=== PATIENT | female | born 1980 | race Caucasian/White ===

== ENCOUNTER 2016-10-28 00:13 | Emergency (ER) | payer MEDICAID ==
[~2016-10-28] VITALS: Ht 152.4 cm; Wt 149.2 kg
[~2016-10-28 00:13] MED LIST: HYDR-4100 PO; IBUP-1480 PO; METH500T PO; MONT10TA25 PO
[2016-10-28 00:18] VITALS: BP_SYST 124
--- NOTE | 2016-10-28 00:40 | NUR ---
Placed in room 6 . Placed on cardiac sonographer, blood pressure machine and pulse oximeter. To gown for exam. Side rails up.
--- NOTE | 2016-10-28 00:42 | NUR ---
Pt presents to ED with c/o severe headache 05/15 x2 days, taken norco, advil and tylenol without relief. A&Ox4, ambulatory, denies SOB or chestpain, denies N/V/D, skin intact. will continue to monitor
--- NOTE | 2016-10-28 00:45 | NUR ---
at bedside examining pt
[2016-10-28 01:02] LABS: BILIRUBIN,URINE NEGATIVE (NEGATIVE); CLARITY/URINE SL HAZY (CLEAR); COLOR,URINE YELLOW (YELLOW); GLUCOSE,URINE NEGATIVE (NEGATIVE); KETONES,URINE NEGATIVE (NEGATIVE); LEUKOCYTE ESTERASE ,URINE NEGATIVE (NEGATIVE); NITRITE, URINE NEGATIVE (NEGATIVE); PH,URINE 5.5 (5.0-8.0); PROTEIN URINE NEGATIVE (NEGATIVE); UROBILINOGEN,URINE 0.2 (0.2-1.0)
[2016-10-28 01:15] LABS: BLOOD, URINE TRACE (NEGATIVE)
[2016-10-28] MEDS ORDERED: KETOROLAC TROMETHAMINE 30 MG VIAL IVP ONE (01:15)
[2016-10-28 01:18] LABS: BACTERIA,URINE RARE /HPF (None Seen); RBC,URINE 0-3 /HPF (0-3); WBC,URINE NONE SEEN /HPF (0-3)
[2016-10-28] MEDS ORDERED: cefTRIAXone 2 GM VIAL ONE (01:23)
--- NOTE | 2016-10-28 01:40 | NUR ---
Pt stated pain is still unbearable after toradol IV, MD cao notified
[2016-10-28] MEDS ORDERED: ONDANSETRON HCL 4 MG/2 ML VIAL IVP ONE (01:45)
[2016-10-28] MEDS ORDERED: MORPHINE SULFATE 10 MG/ML VIAL IVP ONE (01:45)
--- NOTE | 2016-10-28 02:52 | NUR ---
Pt stated she feels comfortable, pain 0/10. VSS
--- NOTE | 2016-10-28 03:30 | NUR ---
Patient given written and verbal discharge instructions and verbalizes understanding. ER MD Zarco discussed with patient the results and treatment provided. Patient in stable condition. ID arm band removed. IV catheter removed intact and dressing applied, no active bleeding. Rx of Naprosyn, augmentin given. Patient educated on pain management and to follow up with PMD. Pain Scale 0/10 Opportunity for questions provided and answered.
[2016-10-28 03:32] VITALS: BP_SYST 116
== END 2016-10-28 03:30 | disposition home or self-care (01) ==
LOC: SED 00:13
DX: J32.4 Chronic pansinusitis (principal); H66.93 Otitis media, unspecified, bilateral; J45.909 Unspecified asthma, uncomplicated
CPT/HCPCS: 81000; 81025; 96365; 96375; 99284; J0696; J1885; J2270; J2405

== ENCOUNTER 2017-05-28 18:37 | Emergency (ER) | payer MEDICAID ==
[~2017-05-28] VITALS: Ht 152.4 cm; Wt 154.2 kg
[2017-05-28 19:00] VITALS: BP_SYST 130
[2017-05-28] MEDS ORDERED: OXYCODONE/ACETAMINOPHEN *10*mg/325 mg TABLET PO ONE (20:00)
[2017-05-28] MEDS ORDERED: KETOROLAC TROMETHAMINE 60 MG/2 ML VIAL IM ONE (20:00)
[2017-05-28] MEDS ORDERED: SUMAtriptan SUCCINATE 6 MG/0.5 ML VIAL SUBCUT ONE (20:00)
[2017-05-28 20:58] VITALS: BP_SYST 130
== END 2017-05-28 20:58 | disposition home or self-care (01) ==
LOC: SED 18:37
DX: G44.209 Tension-type headache, unspecified, not intractable (principal); J45.909 Unspecified asthma, uncomplicated
CPT/HCPCS: 96372; 99284; J1885; J3030

== ENCOUNTER 2017-10-22 00:07 | Emergency (ER) | payer MEDICAID ==
[~2017-10-22] VITALS: Ht 152.4 cm; Wt 160.6 kg
[2017-10-22 00:12] VITALS: BP_SYST 141
[2017-10-22 01:29] LABS: EOSINOPHILS # (AUTO) 0.5 K/uL (0.0-0.4); MEAN CORPUSCULAR HGB CONC 29 % (32-36); WHITE BLOOD COUNT (AUTO) 11.8 K/uL (4.8-10.8)
[2017-10-22 01:37] LABS: BASOPHILS # (AUTO) 0.1 K/uL (0.0-0.2); BASOPHILS % (AUTO) 0.5 % (0.0-2.0); EOSINOPHILS % (AUTO) 4.2 % (0.0-4.0); HEMATOCRIT 31.5 % (36-48); HEMOGLOBIN 9.2 g/dL (12.0-16.0); LYMPHOCYTES # (AUTO) 2.6 K/uL (1.0-5.5); LYMPHOCYTES % (AUTO) 22.1 % (20.5-51.5); MEAN CORPUSCULAR HEMOGLOBIN 19 pg (27-31); MEAN CORPUSCULAR VOLUME 66 fL (79.0-98.0); MONOCYTES # (AUTO) 0.5 K/uL (0.0-1.0); NEUTROPHILS # (AUTO) 8.1 K/uL (1.8-7.7); NEUTROPHILS % (AUTO) 69.2 % (40.0-70.0); PLATELET COUNT (AUTO) 348 K/uL (130-430); RED BLOOD CELL COUNT(AUTO) 4.76 MIL/uL (4.2-6.2)
[2017-10-22 01:45] LABS: CALCIUM 8.7 mg/dL (8.4-11.0); CREATININE 0.65 mg/dL (0.55-1.30); POTASSIUM 4.3 mmol/L (3.5-5.1)
[2017-10-22 01:50] LABS: TOTAL BILIRUBIN 0.2 mg/dL (0.0-1.0)
[2017-10-22 02:20] VITALS: BP_SYST 141
== END 2017-10-22 02:20 | disposition home or self-care (01) ==
LOC: SED 00:07
DX: R60.9 Edema, unspecified (principal); J45.909 Unspecified asthma, uncomplicated; E66.01 Morbid (severe) obesity due to excess calories; Z68.44 Body mass index [BMI] 60.0-69.9, adult; Z90.89 Acquired absence of other organs; Z90.49 Acquired absence of other specified parts of digestive tract; Z79.899 Other long term (current) drug therapy; Z87.891 Personal history of nicotine dependence
CPT/HCPCS: 36415; 71045; 71046-TC; 80053; 83690-TC; 83880; 84484; 85025; 93005; 99285

== ENCOUNTER 2019-06-05 15:47 | Inpatient (IN) | payer MEDICAID ==
[~2019-06-05] VITALS: Ht 152.4 cm; Wt 170.6 kg
[~2019-06-05 15:47] MED LIST changes: -IBUP-1480 PO; +IBUP-1970 PO
[2019-06-05 15:50] VITALS: BP_SYST 150
[2019-06-05] MEDS ORDERED: NITROGLYCERIN 1 INCH (GM) OINT. TP ONE (16:00)
[2019-06-05] MEDS ORDERED: FUROSEMIDE 100 MG/10 ML VIAL IVP ONE (16:00)
[2019-06-05] MEDS ORDERED: KETOROLAC TROMETHAMINE 30 MG VIAL IVP ONE (16:00)
[2019-06-05] MEDS ORDERED: IPRATROPIUM/ALBUTEROL SULFATE 3 ML AMPUL.NEB (DUONEB) INH ONE (16:00)
[2019-06-05 17:03] LABS: BASOPHILS # (AUTO) 0.1 K/uL (0.0-0.2); BASOPHILS % (AUTO) 0.7 % (0.0-2.0); EOSINOPHILS # (AUTO) 0.2 K/uL (0.0-0.4); EOSINOPHILS % (AUTO) 1.9 % (0.0-4.0); HEMATOCRIT 35.3 % (36-48); HEMOGLOBIN 10.4 g/dL (12.0-16.0); LYMPHOCYTES % (AUTO) 18.1 % (20.5-51.5); MEAN CORPUSCULAR HEMOGLOBIN 21 pg (27-31); MEAN CORPUSCULAR HGB CONC 30 % (32-36); MEAN CORPUSCULAR VOLUME 72 fL (79.0-98.0); MONOCYTES # (AUTO) 0.5 K/uL (0.0-1.0); MONOCYTES % (AUTO) 4.7 % (1.7-9.3); NEUTROPHILS # (AUTO) 8.4 K/uL (1.8-7.7); NEUTROPHILS % (AUTO) 74.6 % (40.0-70.0); PLATELET COUNT (AUTO) 268 K/uL (130-430); RED BLOOD CELL COUNT(AUTO) 4.92 MIL/uL (4.2-6.2); RED CELL DISTRIBUTION WIDTH 22.4 % (9.0-15.0); WHITE BLOOD COUNT (AUTO) 11.3 K/uL (4.8-10.8)
[2019-06-05 17:15] LABS: CALCIUM 8.3 mg/dL (8.4-11.0); CREATININE 0.78 mg/dL (0.55-1.30); POTASSIUM 4.2 mmol/L (3.5-5.1)
[2019-06-05 17:22] LABS: TOTAL BILIRUBIN 0.3 mg/dL (0.0-1.0)
[2019-06-05 17:33] LABS: PROTHROMBIN TIME 10.4 SECS (9.5-12.5)
[2019-06-05] MEDS ORDERED: LEVO100T9 PO (18:26)
[2019-06-05] MEDS ORDERED: GABA800T PO (18:26)
[2019-06-05] MEDS ORDERED: ALPR1TAB2 PO (18:26)
[2019-06-05] MEDS ORDERED: FURO-150 PO (18:26)
[2019-06-05] MEDS ORDERED: HYDR-3925 PO (18:26)
[2019-06-05] MEDS ORDERED: TRAZ-250 PO (18:26)
[2019-06-05] MEDS ORDERED: methylPREDNISolone SOD SUCC/PF 62.5 MG/ML VIAL IVP ONE (18:30)
[2019-06-05 19:27] LABS: BILIRUBIN,URINE NEGATIVE (NEGATIVE); BLOOD, URINE 3+ (NEGATIVE); CLARITY/URINE SL CLOUDY (CLEAR); COLOR,URINE YELLOW (YELLOW); GLUCOSE,URINE NEGATIVE (NEGATIVE); KETONES,URINE NEGATIVE (NEGATIVE); LEUKOCYTE ESTERASE ,URINE NEGATIVE (NEGATIVE); NITRITE, URINE NEGATIVE (NEGATIVE); PH,URINE 5.5 (5.0-8.0); PROTEIN URINE 2+ (NEGATIVE); UROBILINOGEN,URINE 0.2 (0.2-1.0)
[2019-06-05] MEDS ORDERED: MAGNESIUM SULFATE 50 ML IV ONE (19:30)
[2019-06-05 19:31] LABS: BACTERIA,URINE FEW /HPF (None Seen); RBC,URINE >100 /HPF (0-3)
[2019-06-05 19:32] LABS: MUCUS,URINE None Seen /LPF (None Seen)
[2019-06-05] MEDS ORDERED: HYDROcodone/ACETAMIN 5-325 MG TAB (NORCO/ VICODIN) PO ONE (20:30)
[2019-06-05] MEDS ORDERED: IPRATROPIUM/ALBUTEROL SULFATE 3 ML AMPUL.NEB (DUONEB) INH PRN (22:30)
[2019-06-05 23:00] VITALS: BP_SYST 130
[2019-06-05 23:25] VITALS: BP_SYST 150
[2019-06-05] MEDS ORDERED: ZOLPIDEM TARTRATE 5 MG TABLET PO PRN (23:30)
[2019-06-06] MEDS: methylPREDNISolone SOD SUCC/PF 62.5 MG/ML VIAL IVP SCH ×2 (00:18→09:13)
[2019-06-06] MEDS: cefTRIAXone 1 GM in D5W 50 ML IV SCH ×2 (00:21→22:42)
[2019-06-06] MEDS: AZITHROMYCIN 500 MG in NS 250 ML IV SCH ×2 (00:22→22:42)
[2019-06-06] MEDS ORDERED: AZITHROMYCIN 500 MG/VIAL (ZITHROMAX) IV ONE (00:23)
[2019-06-06] MEDS ORDERED: cefTRIAXone 1 GM IVPB PREMIX 50 ML IV ONE (00:23)
[2019-06-06] MEDS: HEPARIN SODIUM,PORCINE 5000 UNITS/ML VIAL SUBCUT SCH ×3 (00:24→21:29)
[2019-06-06] MEDS: IPRATROPIUM/ALBUTEROL SULFATE 3 ML AMPUL.NEB (DUONEB) INH SCH ×5 (00:27→23:51)
[2019-06-06 00:52] VITALS: BP_SYST 130
[2019-06-06] MEDS: LEVOTHYROXINE SODIUM 0.1 MG TABLET PO SCH (06:18)
[2019-06-06 07:28] LABS: BASOPHILS % (AUTO) 0.1 % (0.0-2.0); HEMATOCRIT 35.9 % (36-48); HEMOGLOBIN 10.6 g/dL (12.0-16.0); LYMPHOCYTES # (AUTO) 0.8 K/uL (1.0-5.5); LYMPHOCYTES % (AUTO) 7.7 % (20.5-51.5); MEAN CORPUSCULAR HEMOGLOBIN 22 pg (27-31); MEAN CORPUSCULAR HGB CONC 30 % (32-36); MEAN CORPUSCULAR VOLUME 73 fL (79.0-98.0); MONOCYTES # (AUTO) 0.1 K/uL (0.0-1.0); MONOCYTES % (AUTO) 0.7 % (1.7-9.3); NEUTROPHILS % (AUTO) 91.5 % (40.0-70.0); PLATELET COUNT (AUTO) 257 K/uL (130-430); RED BLOOD CELL COUNT(AUTO) 4.92 MIL/uL (4.2-6.2); RED CELL DISTRIBUTION WIDTH 22.3 % (9.0-15.0); WHITE BLOOD COUNT (AUTO) 10.9 K/uL (4.8-10.8)
[2019-06-06 07:50] LABS: ALANINE AMINOTRANSFERASE 39 U/L (12-78); ALBUMIN 2.9 g/dL (3.4-4.8); ASPARTATE AMINOTRANSFERASE 22 U/L (10-37); CALCIUM 8.4 mg/dL (8.4-11.0); CHLORIDE 100 mmol/L (98-107); CREATININE 0.77 mg/dL (0.55-1.30); FREE T4 (FREE THYROXINE) 1.2 ng/dl (0.8-1.5); GLUCOSE 199 mg/dL (70-99); POTASSIUM 4.6 mmol/L (3.5-5.1); SODIUM SERUM 137 mmol/L (136-145); TOTAL BILIRUBIN 0.3 mg/dL (0.0-1.0); UREA NITROGEN, BLOOD 13 mg/dL (8-21)
[2019-06-06 07:53] LABS: ANION GAP < 3 (5-15); GFR AFRICAN AMERICAN 106 mL/min (>90)
[2019-06-06 08:00] VITALS: BP_SYST 124
[2019-06-06] MEDS ORDERED: FLU VACC QS2019-20 36MOS UP/PF 60 MCG/0.5 ML SYRINGE I.M. PRN (09:00)
[2019-06-06] MEDS: FUROSEMIDE 20 MG TABLET PO SCH (09:13)
[2019-06-06] MEDS ORDERED: HYDROcodone/ACETAMIN 10-325 MG TAB PO PRN (09:45)
[2019-06-06] MEDS ORDERED: ALPRAZolam 0.25 MG TABLET PO ONE (10:15)
[2019-06-06] MEDS: KETOROLAC TROMETHAMINE 15 MG VIAL IVP PRN (10:33)
[2019-06-06 12:22] VITALS: BP_SYST 119
[2019-06-06] MEDS ORDERED: FUROSEMIDE 20 MG/2 ML VIAL IVP ONE (15:00)
[2019-06-06 16:16] VITALS: BP_SYST 126
[2019-06-06] MEDS ORDERED: ALPRAZolam 0.25 MG TABLET PO SCH (21:00)
[2019-06-06 21:21] VITALS: BP_SYST 113
[2019-06-06] MEDS: ALPRAZolam 0.25 MG TABLET PO SCH (21:24)
[2019-06-06] MEDS: GABAPENTIN 300 MG CAPSULE PO SCH (21:24)
[2019-06-06] MEDS: traZODone HCL 50 MG TABLET (DESYREL) PO SCH (21:24)
[2019-06-06] MEDS: methylPREDNISolone SOD SUCC 40 MG/ML VIAL IVP SCH (21:25)
[2019-06-07 01:00] VITALS: BP_SYST 124
[2019-06-07] MEDS: IPRATROPIUM/ALBUTEROL SULFATE 3 ML AMPUL.NEB (DUONEB) INH SCH ×6 (03:00→23:28)
[2019-06-07] MEDS: LEVOTHYROXINE SODIUM 0.1 MG TABLET PO SCH (06:00)
[2019-06-07 08:00] VITALS: BP_SYST 128
[2019-06-07] MEDS: HEPARIN SODIUM,PORCINE 5000 UNITS/ML VIAL SUBCUT SCH ×2 (08:59→20:19)
[2019-06-07] MEDS: methylPREDNISolone SOD SUCC 40 MG/ML VIAL IVP SCH ×2 (09:00→20:17)
[2019-06-07] MEDS: ALPRAZolam 0.25 MG TABLET PO SCH ×2 (09:01→20:15)
[2019-06-07] MEDS: FUROSEMIDE 20 MG TABLET PO SCH (09:02)
[2019-06-07] MEDS ORDERED: MAGNESIUM SULFATE 50 ML IV ONE (10:45)
[2019-06-07 12:00] VITALS: BP_SYST 131
[2019-06-07] MEDS: KETOROLAC TROMETHAMINE 15 MG VIAL IVP PRN (12:39)
[2019-06-07] MEDS: MORPHINE 4 MG/ML INJ. SYRINGE IVP PRN ×2 (13:04→20:29)
[2019-06-07 16:48] VITALS: BP_SYST 141
[2019-06-07 19:40] VITALS: BP_SYST 154
[2019-06-07] MEDS: GABAPENTIN 300 MG CAPSULE PO SCH (20:14)
[2019-06-07] MEDS: traZODone HCL 50 MG TABLET (DESYREL) PO SCH (20:14)
[2019-06-07] MEDS: POTASSIUM CHLORIDE 20 MEQ/PKT PACKET PO SCH (20:17)
[2019-06-07] MEDS: FUROSEMIDE 20 MG/2 ML VIAL IVP SCH (21:41)
[2019-06-07] MEDS: cefTRIAXone 1 GM in D5W 50 ML IV SCH (23:51)
[2019-06-08 00:11] VITALS: BP_SYST 135
[2019-06-08] MEDS: IPRATROPIUM/ALBUTEROL SULFATE 3 ML AMPUL.NEB (DUONEB) INH SCH ×6 (03:48→23:00)
[2019-06-08] MEDS: LEVOTHYROXINE SODIUM 0.1 MG TABLET PO SCH (06:33)
[2019-06-08 06:50] LABS: CALCIUM 8.3 mg/dL (8.4-11.0); CREATININE 0.77 mg/dL (0.55-1.30); POTASSIUM 4.7 mmol/L (3.5-5.1)
[2019-06-08] MEDS: POTASSIUM CHLORIDE 20 MEQ/PKT PACKET PO SCH ×2 (07:59→20:26)
[2019-06-08] MEDS: MORPHINE 4 MG/ML INJ. SYRINGE IVP PRN ×3 (07:59→20:25)
[2019-06-08] MEDS: methylPREDNISolone SOD SUCC 40 MG/ML VIAL IVP SCH ×2 (07:59→20:15)
[2019-06-08] MEDS: ALPRAZolam 0.25 MG TABLET PO SCH ×2 (08:00→20:13)
[2019-06-08] MEDS: FUROSEMIDE 20 MG/2 ML VIAL IVP SCH ×2 (08:00→20:16)
[2019-06-08] MEDS: HEPARIN SODIUM,PORCINE 5000 UNITS/ML VIAL SUBCUT SCH ×2 (08:01→20:18)
[2019-06-08 08:08] VITALS: BP_SYST 134
[2019-06-08 10:23] VITALS: BP_SYST 134
[2019-06-08 12:32] VITALS: BP_SYST 139
[2019-06-08 16:21] VITALS: BP_SYST 140
[2019-06-08] MEDS: MONTELUKAST 10 MG TABLET PO SCH (17:31)
[2019-06-08 19:30] VITALS: BP_SYST 133
[2019-06-08] MEDS: GABAPENTIN 300 MG CAPSULE PO SCH (20:12)
[2019-06-08] MEDS: traZODone HCL 50 MG TABLET (DESYREL) PO SCH (20:13)
[2019-06-08] MEDS: cefTRIAXone 1 GM in D5W 50 ML IV SCH (23:37)
[2019-06-09] VITALS: BP_SYST 128
[2019-06-09] MEDS: LEVOTHYROXINE SODIUM 0.1 MG TABLET PO SCH (06:00)
[2019-06-09 06:59] LABS: CALCIUM 8.7 mg/dL (8.4-11.0); CREATININE 0.75 mg/dL (0.55-1.30); POTASSIUM 4.9 mmol/L (3.5-5.1)
[2019-06-09 08:10] VITALS: BP_SYST 132
[2019-06-09] MEDS: POTASSIUM CHLORIDE 20 MEQ/PKT PACKET PO SCH ×2 (08:28→20:42)
[2019-06-09] MEDS: ALPRAZolam 0.25 MG TABLET PO SCH ×2 (08:28→20:41)
[2019-06-09] MEDS: FUROSEMIDE 20 MG/2 ML VIAL IVP SCH (08:29)
[2019-06-09] MEDS: methylPREDNISolone SOD SUCC 40 MG/ML VIAL IVP SCH (08:29)
[2019-06-09] MEDS: HEPARIN SODIUM,PORCINE 5000 UNITS/ML VIAL SUBCUT SCH ×2 (08:32→20:50)
[2019-06-09] MEDS: MORPHINE 4 MG/ML INJ. SYRINGE IVP PRN ×3 (08:39→21:08)
[2019-06-09 11:20] VITALS: BP_SYST 141
[2019-06-09] MEDS ORDERED: MONT10TA25 PO (13:33)
[2019-06-09] MEDS ORDERED: PRED20TA PO (13:33)
[2019-06-09 15:22] VITALS: BP_SYST 137
[2019-06-09] MEDS: IPRATROPIUM/ALBUTEROL SULFATE 3 ML AMPUL.NEB (DUONEB) INH SCH ×4 (15:53→23:46)
[2019-06-09] MEDS ORDERED: IPRA3AMP9 INH (16:42)
[2019-06-09] MEDS ORDERED: CEPH-568 PO (16:45)
[2019-06-09] MEDS: MONTELUKAST 10 MG TABLET PO SCH (17:46)
[2019-06-09 20:00] VITALS: BP_SYST 133
[2019-06-09] MEDS: GABAPENTIN 300 MG CAPSULE PO SCH (20:42)
[2019-06-09] MEDS: PREDNISONE 20 MG TABLET PO SCH (20:42)
[2019-06-09] MEDS: traZODone HCL 50 MG TABLET (DESYREL) PO SCH (20:42)
[2019-06-09] MEDS: cefTRIAXone 1 GM in D5W 50 ML IV SCH (23:52)
[2019-06-10] MEDS: IPRATROPIUM/ALBUTEROL SULFATE 3 ML AMPUL.NEB (DUONEB) INH SCH ×6 (03:06→23:00)
[2019-06-10 05:00] VITALS: BP_SYST 140
[2019-06-10] MEDS: LEVOTHYROXINE SODIUM 0.1 MG TABLET PO SCH (07:14)
[2019-06-10 07:52] VITALS: BP_SYST 136
[2019-06-10] MEDS: PREDNISONE 20 MG TABLET PO SCH ×2 (08:24→20:32)
[2019-06-10] MEDS: ALPRAZolam 0.25 MG TABLET PO SCH ×2 (08:25→20:30)
[2019-06-10] MEDS: FUROSEMIDE 40 MG TABLET PO SCH (08:25)
[2019-06-10] MEDS: POTASSIUM CHLORIDE 20 MEQ/PKT PACKET PO SCH ×2 (08:25→20:29)
[2019-06-10] MEDS: HEPARIN SODIUM,PORCINE 5000 UNITS/ML VIAL SUBCUT SCH ×2 (08:27→20:31)
[2019-06-10] MEDS: MORPHINE 4 MG/ML INJ. SYRINGE IVP PRN (08:32)
[2019-06-10 11:04] VITALS: BP_SYST 108
[2019-06-10] MEDS: KETOROLAC TROMETHAMINE 15 MG VIAL IVP PRN ×2 (13:04→20:40)
[2019-06-10 15:04] VITALS: BP_SYST 125
[2019-06-10] MEDS: MONTELUKAST 10 MG TABLET PO SCH (17:41)
[2019-06-10 20:00] VITALS: BP_SYST 124
[2019-06-10] MEDS: traZODone HCL 50 MG TABLET (DESYREL) PO SCH (20:29)
[2019-06-10] MEDS: GABAPENTIN 300 MG CAPSULE PO SCH (20:29)
[2019-06-10] MEDS: cefTRIAXone 1 GM in D5W 50 ML IV SCH (23:24)
[2019-06-11 00:11] VITALS: BP_SYST 129
[2019-06-11] MEDS: KETOROLAC TROMETHAMINE 15 MG VIAL IVP PRN ×2 (02:56→09:25)
[2019-06-11] MEDS: IPRATROPIUM/ALBUTEROL SULFATE 3 ML AMPUL.NEB (DUONEB) INH SCH ×3 (03:00→11:00)
[2019-06-11] MEDS: LEVOTHYROXINE SODIUM 0.1 MG TABLET PO SCH (06:06)
[2019-06-11 08:11] VITALS: BP_SYST 130
[2019-06-11] MEDS: POTASSIUM CHLORIDE 20 MEQ/PKT PACKET PO SCH (09:13)
[2019-06-11] MEDS: PREDNISONE 20 MG TABLET PO SCH (09:13)
[2019-06-11] MEDS: FUROSEMIDE 40 MG TABLET PO SCH (09:14)
[2019-06-11] MEDS: ALPRAZolam 0.25 MG TABLET PO SCH (09:14)
[2019-06-11] MEDS: HEPARIN SODIUM,PORCINE 5000 UNITS/ML VIAL SUBCUT SCH (09:16)
[2019-06-11 10:31] VITALS: BP_SYST 133
== END 2019-06-11 12:50 | disposition home health service (06) | DRG 140 ==
LOC: SED 15:47 → STU 22:01
PROVIDERS: ADMIT Internal Medicine; ATTEND Internal Medicine
DX: J44.1 Chronic obstructive pulmonary disease with (acute) exacerbation (principal); R65.11 Systemic inflammatory response syndrome (SIRS) of non-infectious origin with acute organ dysfunction; I27.81 Cor pulmonale (chronic); J96.02 Acute respiratory failure with hypercapnia; J96.01 Acute respiratory failure with hypoxia; E87.2 Acidosis; E66.2 Morbid (severe) obesity with alveolar hypoventilation; E44.1 Mild protein-calorie malnutrition; J45.901 Unspecified asthma with (acute) exacerbation; E03.9 Hypothyroidism, unspecified; F32.9 Major depressive disorder, single episode, unspecified; F41.9 Anxiety disorder, unspecified; I10 Essential (primary) hypertension; Z87.891 Personal history of nicotine dependence; Z71.3 Dietary counseling and surveillance; Z68.45 Body mass index [BMI] 70 or greater, adult; Z79.899 Other long term (current) drug therapy; Z90.49 Acquired absence of other specified parts of digestive tract; Z86.32 Personal history of gestational diabetes
CPT/HCPCS: 36415; 36600; 70450-TC; 70486-TC; 71045; 80048; 80053; 81000-TC; 82803-TC; 83605; 83880; 84439; 84484; 84703; 85025; 85379; 85610-TC; 85730-TC; 87040-TC; 87086; 93005; 93306; 94640; 94760; 96365; 96375; 97116-GP; 97530-GP; 99285; G0378; J0456; J0696; J1030; J1644; J1885; J1940; J2270; J2930; J3475; J7050; J7060; J7512; J7620

== ENCOUNTER 2019-07-02 11:06 | Inpatient (IN) | payer MEDICAID ==
[~2019-07-02] VITALS: Ht 152.4 cm; Wt 158.8 kg
[2019-07-02 11:06] VITALS: BP_SYST 148
[~2019-07-02 11:06] MED LIST changes: +ALPR1TAB2 PO; +CEPH-568 PO; +FURO-150 PO; +GABA800T PO; +HYDR-3925 PO; -HYDR-4100 PO; -IBUP-1970 PO; +IPRA3AMP9 INH; +LEVO100T9 PO; -METH500T PO; +PRED20TA PO; +TRAZ-250 PO
[2019-07-02] MEDS ORDERED: LOPERAMIDE HCL 2 MG CAPSULE PO ONE (11:30)
[2019-07-02] MEDS ORDERED: NACL 0.9% 1,000 ML IV ONE (11:30)
[2019-07-02] MEDS ORDERED: IPRATROPIUM/ALBUTEROL SULFATE 3 ML AMPUL.NEB (DUONEB) INH ONE (11:30)
[2019-07-02] MEDS ORDERED: KETOROLAC TROMETHAMINE 30 MG VIAL IVP ONE (11:30)
[2019-07-02] MEDS ORDERED: ONDANSETRON HCL 4 MG/2 ML VIAL IVP ONE (11:30)
[2019-07-02 12:02] LABS: BASOPHILS # (AUTO) 0.1 K/uL (0.0-0.2); BASOPHILS % (AUTO) 0.4 % (0.0-2.0); EOSINOPHILS % (AUTO) 0.1 % (0.0-4.0); HEMATOCRIT 35.9 % (36-48); HEMOGLOBIN 10.6 g/dL (12.0-16.0); LYMPHOCYTES # (AUTO) 2.2 K/uL (1.0-5.5); LYMPHOCYTES % (AUTO) 13.1 % (20.5-51.5); MEAN CORPUSCULAR HEMOGLOBIN 21 pg (27-31); MEAN CORPUSCULAR HGB CONC 30 % (32-36); MEAN CORPUSCULAR VOLUME 73 fL (79.0-98.0); MONOCYTES # (AUTO) 1.2 K/uL (0.0-1.0); MONOCYTES % (AUTO) 7.2 % (1.7-9.3); NEUTROPHILS # (AUTO) 13.1 K/uL (1.8-7.7); NEUTROPHILS % (AUTO) 79.2 % (40.0-70.0); PLATELET COUNT (AUTO) 292 K/uL (130-430); RED BLOOD CELL COUNT(AUTO) 4.95 MIL/uL (4.2-6.2); RED CELL DISTRIBUTION WIDTH 21.3 % (9.0-15.0); WHITE BLOOD COUNT (AUTO) 16.5 K/uL (4.8-10.8)
[2019-07-02 12:18] LABS: CALCIUM 8.6 mg/dL (8.4-11.0); CREATININE 1.5 mg/dL (0.55-1.30); POTASSIUM 4.8 mmol/L (3.5-5.1)
[2019-07-02 12:30] LABS: ALBUMIN 3.4 g/dL (3.4-4.8)
[2019-07-02] MEDS ORDERED: MORPHINE 4 MG/ML INJ. SYRINGE IVP ONE ×2 (14:15→15:00)
[2019-07-02] MEDS ORDERED: PIPERACILLIN/TAZO 3.375 GM in NS 50 ML IV ONE (14:15)
[2019-07-02] MEDS ORDERED: NACL 0.9% 3,000 ML IV ONE (14:45)
[2019-07-02] MEDS ORDERED: VANCOMYCIN HCL 1,000 MG in NS 250 ML IV ONE (15:00)
[2019-07-02] MEDS ORDERED: PIPERACILLIN/TAZOBACTAM 3.375 GM/VIAL (ZOSYN) IV ONE (15:03)
[2019-07-02 15:07] LABS: BILIRUBIN,URINE NEGATIVE (NEGATIVE); BLOOD, URINE 2+ (NEGATIVE); CLARITY/URINE CLEAR (CLEAR); COLOR,URINE YELLOW (YELLOW); GLUCOSE,URINE NEGATIVE (NEGATIVE); KETONES,URINE NEGATIVE (NEGATIVE); LEUKOCYTE ESTERASE ,URINE NEGATIVE (NEGATIVE); NITRITE, URINE NEGATIVE (NEGATIVE); PROTEIN URINE 2+ (NEGATIVE)
[2019-07-02] MEDS ORDERED: VANCOMYCIN HCL 1000 MG/VIAL IV ONE (15:07)
[2019-07-02 15:30] VITALS: BP_SYST 154
[2019-07-02 15:42] LABS: BACTERIA,URINE FEW /HPF (None Seen); FINE GRANULAR CASTS,URINE 0-10 /LPF (None Seen); HYALINE CASTS, URINE 0-10 /LPF (None Seen); WBC,URINE 0-3 /HPF (0-3)
[2019-07-02] MEDS ORDERED: D5NS 1,000 ML IV ONE (16:00)
[2019-07-02] MEDS ORDERED: POTASSIUM CHLORIDE 20 MEQ TAB.PRT.SR PO PRN (16:00)
[2019-07-02] MEDS ORDERED: MAGNESIUM SULFATE 50 ML IV PRN (16:00)
[2019-07-02] MEDS ORDERED: MUPIROCIN 2% TOPICAL OINTMENT 22 GM NS PRN (16:00)
[2019-07-02] MEDS ORDERED: ZOLPIDEM TARTRATE 5 MG TABLET PO PRN (16:00)
[2019-07-02] MEDS ORDERED: DOCUSATE SODIUM 100 MG CAPSULE PO PRN (16:00)
[2019-07-02] MEDS ORDERED: ACETAMINOPHEN 325 MG TABLET PO PRN (16:00)
[2019-07-02] MEDS ORDERED: IPRATROPIUM/ALBUTEROL SULFATE 3 ML AMPUL.NEB (DUONEB) INH PRN (16:00)
[2019-07-02 16:52] VITALS: BP_SYST 131
[2019-07-02] MEDS: MONTELUKAST 10 MG TABLET PO SCH ×2 (18:00→21:00)
[2019-07-02 19:00] VITALS: BP_SYST 148
[2019-07-02] MEDS: MORPHINE 2 MG/ML INJ. SYRINGE IVP PRN (19:35)
[2019-07-02] MEDS: LORazepam 2 MG/ML VIAL IVP PRN (19:39)
[2019-07-02] MEDS: ONDANSETRON HCL 4 MG/2 ML VIAL IVP PRN (19:39)
[2019-07-02] MEDS: HEPARIN SODIUM,PORCINE 5000 UNITS/ML VIAL SUBCUT SCH (21:00)
[2019-07-03 01:07] VITALS: BP_SYST 155
[2019-07-03 08:00] VITALS: BP_SYST 154
[2019-07-03 08:06] LABS: HEPATITIS A AB, IgM Negative (Negative); HEPATITIS B CORE AB, IgM Negative (Negative); HEPATITIS B SURFACE AG Negative (Negative)
[2019-07-03] MEDS: LEVOTHYROXINE SODIUM 0.1 MG TABLET PO SCH (08:45)
[2019-07-03 09:24] LABS: BASOPHILS % (AUTO) 0.3 % (0.0-2.0); EOSINOPHILS # (AUTO) 0.1 K/uL (0.0-0.4); EOSINOPHILS % (AUTO) 0.7 % (0.0-4.0); HEMATOCRIT 32.8 % (36-48); LYMPHOCYTES % (AUTO) 15.1 % (20.5-51.5); MEAN CORPUSCULAR HEMOGLOBIN 22 pg (27-31); MEAN CORPUSCULAR HGB CONC 30 % (32-36); MEAN CORPUSCULAR VOLUME 72 fL (79.0-98.0); MONOCYTES % (AUTO) 7.6 % (1.7-9.3); NEUTROPHILS # (AUTO) 10.3 K/uL (1.8-7.7); NEUTROPHILS % (AUTO) 76.3 % (40.0-70.0); PLATELET COUNT (AUTO) 266 K/uL (130-430); RED BLOOD CELL COUNT(AUTO) 4.57 MIL/uL (4.2-6.2); RED CELL DISTRIBUTION WIDTH 21.4 % (9.0-15.0); WHITE BLOOD COUNT (AUTO) 13.6 K/uL (4.8-10.8)
[2019-07-03 09:53] LABS: ALANINE AMINOTRANSFERASE 1081 U/L (12-78); ANION GAP 2 (5-15); ASPARTATE AMINOTRANSFERASE 614 U/L (10-37); CALCIUM 8.1 mg/dL (8.4-11.0); CHLORIDE 98 mmol/L (98-107); GLUCOSE 172 mg/dL (70-99); LACTATE DEHYDROGENASE 486 U/L (81-234); POTASSIUM 5.2 mmol/L (3.5-5.1); SODIUM SERUM 135 mmol/L (136-145); TOTAL BILIRUBIN 0.9 mg/dL (0.0-1.0); UREA NITROGEN, BLOOD 28 mg/dL (8-21)
[2019-07-03] MEDS: MORPHINE 2 MG/ML INJ. SYRINGE IVP PRN ×3 (10:01→21:22)
[2019-07-03 10:05] LABS: ACETAMINOPHEN < 1 ug/mL (1-30); GFR AFRICAN AMERICAN 70 mL/min (>90)
[2019-07-03] MEDS: HEPARIN SODIUM,PORCINE 5000 UNITS/ML VIAL SUBCUT SCH ×2 (10:05→21:13)
[2019-07-03] MEDS: ONDANSETRON HCL 4 MG/2 ML VIAL IVP PRN ×2 (10:15→17:30)
[2019-07-03 12:00] VITALS: BP_SYST 140
[2019-07-03 17:14] VITALS: BP_SYST 133
[2019-07-03] MEDS: MONTELUKAST 10 MG TABLET PO SCH (17:30)
[2019-07-03 19:00] VITALS: BP_SYST 130
[2019-07-03 20:00] VITALS: BP_SYST 155
[2019-07-03] MEDS: LORazepam 2 MG/ML VIAL IVP PRN (21:24)
[2019-07-04] VITALS: BP_SYST 162
[2019-07-04] MEDS: LEVOTHYROXINE SODIUM 0.1 MG TABLET PO SCH (05:57)
[2019-07-04 07:41] LABS: HEMATOCRIT 32.6 % (36-48); HEMOGLOBIN 9.7 g/dL (12.0-16.0); MEAN CORPUSCULAR HEMOGLOBIN 22 pg (27-31); MEAN CORPUSCULAR HGB CONC 30 % (32-36); MEAN CORPUSCULAR VOLUME 73 fL (79.0-98.0); PLATELET COUNT (AUTO) 266 K/uL (130-430); RED BLOOD CELL COUNT(AUTO) 4.49 MIL/uL (4.2-6.2); RED CELL DISTRIBUTION WIDTH 21.6 % (9.0-15.0); WHITE BLOOD COUNT (AUTO) 11.6 K/uL (4.8-10.8)
[2019-07-04 08:03] LABS: CALCIUM 7.8 mg/dL (8.4-11.0); CREATININE 0.91 mg/dL (0.55-1.30); POTASSIUM 4.3 mmol/L (3.5-5.1)
[2019-07-04 08:40] VITALS: BP_SYST 119
[2019-07-04] MEDS: HEPARIN SODIUM,PORCINE 5000 UNITS/ML VIAL SUBCUT SCH ×2 (09:07→22:46)
[2019-07-04 11:35] LABS: ATYPICAL LYMPHOCYTES % 2 % (0-0); BASOPHILS % (MANUAL) 0 % (0-2); EOSINOPHILS % (MANUAL) 3 % (0-7); LYMPHOCYTES % (MANUAL) 17 % (20-46); METAMYELOCYTES % 1 % (0-0); MONOCYTES % (MANUAL) 6 % (0-11)
[2019-07-04 11:36] LABS: BAND % (MANUAL) 6 % (0-6)
[2019-07-04 11:37] LABS: TOTAL IRON BIND. CAPACITY 495 ug/dL (250-450)
[2019-07-04 12:06] LABS: ANTI NUCLEAR AB WITH REFLEX Positive (Negative)
[2019-07-04 12:34] VITALS: BP_SYST 106
[2019-07-04] MEDS: SOD FERRIC GLUC COMPLEX/SUC 125 MG in NS 100 ML IV SCH (13:08)
[2019-07-04] MEDS: MORPHINE 2 MG/ML INJ. SYRINGE IVP PRN (16:03)
[2019-07-04 17:13] VITALS: BP_SYST 98
[2019-07-04] MEDS: metFORMIN HCL 500 MG TABLET PO SCH (17:14)
[2019-07-04] MEDS: MONTELUKAST 10 MG TABLET PO SCH (17:14)
[2019-07-04 20:00] VITALS: BP_SYST 123
[2019-07-04 23:50] VITALS: BP_SYST 100
[2019-07-05] MEDS: MORPHINE 2 MG/ML INJ. SYRINGE IVP PRN ×3 (03:24→21:35)
[2019-07-05 06:26] LABS: BASOPHILS % (AUTO) 0.4 % (0.0-2.0); EOSINOPHILS # (AUTO) 0.4 K/uL (0.0-0.4); EOSINOPHILS % (AUTO) 3.8 % (0.0-4.0); HEMATOCRIT 31.6 % (36-48); HEMOGLOBIN 9.8 g/dL (12.0-16.0); LYMPHOCYTES # (AUTO) 2.4 K/uL (1.0-5.5); LYMPHOCYTES % (AUTO) 22.8 % (20.5-51.5); MEAN CORPUSCULAR HEMOGLOBIN 22 pg (27-31); MEAN CORPUSCULAR HGB CONC 31 % (32-36); MEAN CORPUSCULAR VOLUME 72 fL (79.0-98.0); MONOCYTES # (AUTO) 0.8 K/uL (0.0-1.0); MONOCYTES % (AUTO) 7.2 % (1.7-9.3); NEUTROPHILS # (AUTO) 6.9 K/uL (1.8-7.7); NEUTROPHILS % (AUTO) 65.8 % (40.0-70.0); PLATELET COUNT (AUTO) 241 K/uL (130-430); RED BLOOD CELL COUNT(AUTO) 4.42 MIL/uL (4.2-6.2); RED CELL DISTRIBUTION WIDTH 21.5 % (9.0-15.0); WHITE BLOOD COUNT (AUTO) 10.6 K/uL (4.8-10.8)
[2019-07-05] MEDS: LEVOTHYROXINE SODIUM 0.1 MG TABLET PO SCH (06:28)
[2019-07-05 06:45] LABS: ALBUMIN 2.7 g/dL (3.4-4.8); CALCIUM 7.9 mg/dL (8.4-11.0); CREATININE 0.81 mg/dL (0.55-1.30); POTASSIUM 4.4 mmol/L (3.5-5.1); TOTAL BILIRUBIN 0.7 mg/dL (0.0-1.0)
[2019-07-05 07:37] LABS: EBV AB VCA, IgM <36.0 U/mL (0.0-35.9)
[2019-07-05 08:00] VITALS: BP_SYST 114
[2019-07-05] MEDS: metFORMIN HCL 500 MG TABLET PO SCH ×2 (09:30→18:13)
[2019-07-05] MEDS: HEPARIN SODIUM,PORCINE 5000 UNITS/ML VIAL SUBCUT SCH ×2 (09:31→21:40)
[2019-07-05] MEDS: SOD FERRIC GLUC COMPLEX/SUC 125 MG in NS 100 ML IV SCH (13:39)
[2019-07-05 16:26] LABS: INR 1.2 (0.8-1.2); PROTHROMBIN TIME 11.6 SECS (9.5-12.5)
[2019-07-05] MEDS: MONTELUKAST 10 MG TABLET PO SCH (18:13)
[2019-07-05 20:00] VITALS: BP_SYST 113
[2019-07-05] MEDS: LORazepam 2 MG/ML VIAL IVP PRN (22:51)
[2019-07-06] MEDS: LEVOTHYROXINE SODIUM 0.1 MG TABLET PO SCH (05:06)
[2019-07-06 06:16] LABS: BASOPHILS # (AUTO) 0.1 K/uL (0.0-0.2); BASOPHILS % (AUTO) 0.6 % (0.0-2.0); EOSINOPHILS # (AUTO) 0.5 K/uL (0.0-0.4); EOSINOPHILS % (AUTO) 4.9 % (0.0-4.0); HEMATOCRIT 34.8 % (36-48); HEMOGLOBIN 10.4 g/dL (12.0-16.0); LYMPHOCYTES # (AUTO) 2.7 K/uL (1.0-5.5); LYMPHOCYTES % (AUTO) 26.5 % (20.5-51.5); MEAN CORPUSCULAR HEMOGLOBIN 22 pg (27-31); MEAN CORPUSCULAR HGB CONC 30 % (32-36); MEAN CORPUSCULAR VOLUME 73 fL (79.0-98.0); MONOCYTES # (AUTO) 0.7 K/uL (0.0-1.0); MONOCYTES % (AUTO) 6.6 % (1.7-9.3); NEUTROPHILS # (AUTO) 6.3 K/uL (1.8-7.7); NEUTROPHILS % (AUTO) 61.4 % (40.0-70.0); PLATELET COUNT (AUTO) 257 K/uL (130-430); RED BLOOD CELL COUNT(AUTO) 4.76 MIL/uL (4.2-6.2); RED CELL DISTRIBUTION WIDTH 21.4 % (9.0-15.0); WHITE BLOOD COUNT (AUTO) 10.3 K/uL (4.8-10.8)
[2019-07-06 06:30] LABS: ALBUMIN 2.9 g/dL (3.4-4.8); CALCIUM 8.4 mg/dL (8.4-11.0); CREATININE 0.75 mg/dL (0.55-1.30); POTASSIUM 4.6 mmol/L (3.5-5.1); TOTAL BILIRUBIN 0.5 mg/dL (0.0-1.0)
[2019-07-06 08:10] VITALS: BP_SYST 126
[2019-07-06] MEDS: metFORMIN HCL 500 MG TABLET PO SCH ×2 (08:28→17:30)
[2019-07-06] MEDS: HEPARIN SODIUM,PORCINE 5000 UNITS/ML VIAL SUBCUT SCH ×2 (08:30→20:08)
[2019-07-06] MEDS: MORPHINE 2 MG/ML INJ. SYRINGE IVP PRN (09:48)
[2019-07-06 12:10] VITALS: BP_SYST 115
[2019-07-06 16:26] VITALS: BP_SYST 136
[2019-07-06] MEDS ORDERED: LORazepam 1 MG TABLET PO PRN (17:00)
[2019-07-06] MEDS ORDERED: KETOROLAC TROMETHAMINE 30 MG VIAL IVP PRN (17:00)
[2019-07-06] MEDS: MONTELUKAST 10 MG TABLET PO SCH (17:30)
[2019-07-06 20:00] VITALS: BP_SYST 140
[2019-07-07] MEDS: LEVOTHYROXINE SODIUM 0.1 MG TABLET PO SCH (05:08)
[2019-07-07 07:10] LABS: BASOPHILS # (AUTO) 0.1 K/uL (0.0-0.2); BASOPHILS % (AUTO) 0.6 % (0.0-2.0); EOSINOPHILS # (AUTO) 0.4 K/uL (0.0-0.4); EOSINOPHILS % (AUTO) 4.3 % (0.0-4.0); HEMATOCRIT 34.7 % (36-48); HEMOGLOBIN 10.3 g/dL (12.0-16.0); LYMPHOCYTES # (AUTO) 2.7 K/uL (1.0-5.5); MEAN CORPUSCULAR HEMOGLOBIN 22 pg (27-31); MEAN CORPUSCULAR HGB CONC 30 % (32-36); MEAN CORPUSCULAR VOLUME 72 fL (79.0-98.0); MONOCYTES # (AUTO) 0.6 K/uL (0.0-1.0); MONOCYTES % (AUTO) 6.4 % (1.7-9.3); NEUTROPHILS # (AUTO) 4.9 K/uL (1.8-7.7); NEUTROPHILS % (AUTO) 56.7 % (40.0-70.0); PLATELET COUNT (AUTO) 248 K/uL (130-430); RED BLOOD CELL COUNT(AUTO) 4.79 MIL/uL (4.2-6.2); RED CELL DISTRIBUTION WIDTH 21.5 % (9.0-15.0); WHITE BLOOD COUNT (AUTO) 8.6 K/uL (4.8-10.8)
[2019-07-07 07:51] LABS: ALBUMIN 2.8 g/dL (3.4-4.8); CALCIUM 8.9 mg/dL (8.4-11.0); CREATININE 0.71 mg/dL (0.55-1.30); POTASSIUM 4.5 mmol/L (3.5-5.1); TOTAL BILIRUBIN 0.5 mg/dL (0.0-1.0)
[2019-07-07] MEDS: metFORMIN HCL 500 MG TABLET PO SCH (09:33)
[2019-07-07] MEDS: HEPARIN SODIUM,PORCINE 5000 UNITS/ML VIAL SUBCUT SCH (09:34)
[2019-07-07 11:35] VITALS: BP_SYST 126
[2019-07-07] MEDS ORDERED: GLU500 PO (11:41)
[2019-07-07 12:34] VITALS: BP_SYST 126
[2019-07-08 07:38] LABS: ANTI-SMOOTH MUSCLE AB 5 Units (0-19)
[2019-07-11 13:14] LABS: ATYPICAL pANCA <1:20 titer (Neg:<1:20); CYTOPLASMIC (C-ANCA) <1:20 titer (Neg:<1:20); CYTOPLASMIC (P-ANCA) <1:20 titer (Neg:<1:20)
== END 2019-07-07 13:50 | disposition home or self-care (01) ==
LOC: SED 11:06 → SMU 15:50
PROVIDERS: ADMIT General Practice; ATTEND General Practice
DX: B17.8 Other specified acute viral hepatitis (principal); N17.0 Acute kidney failure with tubular necrosis; R65.10 Systemic inflammatory response syndrome (SIRS) of non-infectious origin without acute organ dysfunction; E87.1 Hypo-osmolality and hyponatremia; E66.01 Morbid (severe) obesity due to excess calories; E11.65 Type 2 diabetes mellitus with hyperglycemia; E87.5 Hyperkalemia; R74.0 Nonspecific elevation of levels of transaminase and lactic acid dehydrogenase [LDH]; J45.909 Unspecified asthma, uncomplicated; N28.9 Disorder of kidney and ureter, unspecified; I10 Essential (primary) hypertension; E03.9 Hypothyroidism, unspecified; D50.9 Iron deficiency anemia, unspecified; Z79.899 Other long term (current) drug therapy; Z68.44 Body mass index [BMI] 60.0-69.9, adult; Z90.49 Acquired absence of other specified parts of digestive tract
CPT/HCPCS: 36415; 71046-TC; 76700-TC; 80048; 80053; 80074; 81000-TC; 82140-TC; 82784; 83036; 83516; 83540-TC; 83550-TC; 83605; 83615-TC; 83690-TC; 83735-TC; 84443-TC; 84484; 85007; 85025; 85027; 85610-TC; 86038; 86256; 86665; 86710; 87040-TC; 87045-TC; 87046; 87086; 87177; 87230-TC; 89055; 94640; 96365; 96366; 96367; 96375; 99291; G0480; G0481; J1644; J1885; J2060; J2270; J2405; J2543; J2916; J3370; J7030; J7042; J7620

== ENCOUNTER 2021-04-03 12:01 | Emergency (ER) | payer MEDICAID, SELFPAY ==
[~2021-04-03] VITALS: Ht 152.4 cm; Wt 108.9 kg
[~2021-04-03 12:01] MED LIST changes: -ALPR1TAB2 PO; +ASPI-989 PO; +BUSP10TA3 PO; +CARV3.1246 PO; -CEPH-568 PO; +FER300L PO; -FURO-150 PO; -GABA800T PO; -HYDR-3925 PO; -IPRA3AMP9 INH; +ISO10 PO; -MONT10TA25 PO; +MULT-1117 PO; -PRED20TA PO; +PRO40 PO; -TRAZ-250 PO
[2021-04-03 12:02] VITALS: BP_SYST 117
--- NOTE | 2021-04-03 12:02 | NUR ---
BROUGHT INTO TRIAGE TENT AND TRIAGED. AWAITING ER BED
--- NOTE | 2021-04-03 12:55 | NUR ---
DR ANDRES OUTSIDE TO TRIAGE TENT FOR EVALUATION
--- NOTE | 2021-04-03 13:10 | NUR ---
NO CHANGES, AWAITING RESULTS
--- NOTE | 2021-04-03 14:30 | NUR ---
DR POSADA OUT TO TENT TO SPEAK WITH PT.
--- NOTE | 2021-04-03 15:32 | NUR ---
Patient given written and verbal discharge instructions and verbalizes understanding. ER MD discussed with patient the results and treatment provided. Patient in stable condition. ID arm band removed. Rx of NONE given. Patient educated on pain management and to follow up with PMD. Pain Scale 0/10. Opportunity for questions provided and answered. Medication side effect fact sheet provided.
== END 2021-04-03 15:34 | disposition home or self-care (01) ==
LOC: SED 12:01
DX: J06.9 Acute upper respiratory infection, unspecified (principal); R05 Cough; J44.9 Chronic obstructive pulmonary disease, unspecified; I10 Essential (primary) hypertension; Z79.899 Other long term (current) drug therapy; Z79.82 Long term (current) use of aspirin; Z20.822 Contact with and (suspected) exposure to COVID-19
CPT/HCPCS: 36415; 71045; 99284